=== PATIENT | male | born 1980 | race Caucasian/White ===

== ENCOUNTER 2023-01-05 15:24 | Emergency (ER) | payer OTHER, SELFPAY ==
[2023-01-05 15:40] VITALS: BP 171/95; PULSE 92; RESP 16; TEMP 37; O2SAT 97; BMI 35.5
[2023-01-05 16:16] VITALS: BP 165/100; PULSE 94; RESP 16; O2SAT 98
--- NOTE | 2023-01-05 16:18 | XRR_ITS ---
PROCEDURE INFORMATION: Exam: XR Chest Exam date and time: 01/05/2023 4:24 PM Age: 42 years old Clinical indication: Cough and dyspnea; Additional info: Dyspnea/cough TECHNIQUE: Imaging protocol: Radiologic exam of the chest. Views: 1 view. COMPARISON: No relevant prior studies available. FINDINGS: Lungs: Unremarkable. No consolidation. Pleural spaces: Unremarkable. No pleural effusion. No pneumothorax. Heart/Mediastinum: Unremarkable. No cardiomegaly. Bones/joints: Unremarkable. XR/XR chest 1V portable [id number] IMPRESSION: No acute findings.
--- NOTE | 2023-01-05 16:31 | ED_ITS ---
HPI - Dizziness General: Chief Complaint: Dizziness Stated Complaint: sent by bc/lightheaded/dizzy/high bp Time Seen by Provider: 01/05/23 16:15 Source: patient Mode of arrival: ambulatory History of Present Illness: HPI Narrative: 42-year-old male presents emergency room with complaint of lightheadedness dizziness elevated blood pressure. He has had this going on for several weeks it was worse today. He went to be seen in the [facility] walk-in clinic and was referred here. His blood pressure been elevated over 200 at that clinic. He denies any chest pain or difficulty with vision swallowing gait. No ataxia. He had previously been thought to be hypertensive but when he made a dietary change and excluded all caffeine his hypertension resolved. MD elicited complaint: dizziness and lightheadedness Onset (ago): minute(s) Timing: sudden onset Severity: mild Description: sense of movement Exacerbating factors: nothing Relieving factors: nothing Associated symptoms: Denies abnormal vaginal bleeding, change in hearing, chest pain, chills, cough, diaphoresis, ear discharge, ear pressure, fevers/chills, headache(s), malaise, nausea, nasal congestion, palpitations, rash, short of breath, syncope, tinnitus, vomiting or weakness Associated neuro symptoms: Deny confusion, difficulty speaking, dysphagia, diplopia, extremity weakness, facial numbness, facial weakness, gait changes, numbness in extremities or visual changes Review of Systems Const: Denies: chills, fatigue, malaise or diaphoresis ENMT: Denies: ear discharge, change in hearing, tinnitus or nasal congestion Card: Denies: chest pain, palpitations, irregular heart rhythm, edema, swelling of feet/ankles or syncope Resp: Denies: dyspnea, productive cough or non-productive cough GI: Denies: abdominal pain, nausea, vomiting or dysphagia : Denies: flank pain, dysuria, urinary frequency or urinary urgency Skin/Breast: Denies: rash or pruritus Neuro: Denies: headache(s), numbness in extremities or confusion Physical Exam Const: GENERAL APPEARANCE: cooperative and comfortable ORIENTATION/CONSCIOUSNESS: Yes awake, Yes oriented to person, Yes oriented to place and Yes oriented to time HENMT: COMMON NORMALS: normocephalic, atraumatic and hearing grossly normal bilaterally HEAD & SCALP: normocephalic and atraumatic Resp: COMMON NORMALS: normal respiratory effort, No retractions, No use of accessory muscles and clear to auscultation bilaterally AUSCULTATION: clear to auscultation bilaterally Cardio: COMMON NORMALS: regular rate, regular rhythm and No murmurs present (Cardio) RATE: regular rate RHYTHM: regular rhythm GI: COMMON NORMALS: Soft to palpation and No hepatosplenomegaly present AUSCULTATION: Yes normoactive bowel sounds PALPATION: Yes Soft to palpation, No Tenderness to palpation present (GI), No Guarding due to palpation present (GI) and Yes No hepatosplenomegaly present : COMMON NORMALS: Yes no CVA tenderness BLADDER/KIDNEY EXAM: Yes no CVA tenderness Back/Pelvis: COMMON NORMALS: no CVA tenderness Extremity: COMMON NORMALS: normal to inspection, capillary refill normal, no clubbing, cyanosis or edema, no calf tenderness and no pedal edema Neuro: SENSORIUM/ORIENTATION: Yes oriented to person, Yes oriented to place and Yes oriented to time Skin: COMMON NORMALS: no rashes or lesions noted GENERAL SKIN EXAM: no surekha hes or lesions noted Course Vital Signs: Vital signs: Vital Signs Temperature 98.6 F 01/05/23 15:40 Pulse Rate 72 01/05/23 18:07 Respiratory Rate 18 01/05/23 18:07 Blood Pressure 144/99 01/05/23 18:07 Pulse Oximetry 94 01/05/23 18:07 Oxygen Delivery Me thod Room Air 01/05/23 17:30 MDM - Dizziness Medical Decision Making Blood pressure improved with interventions in the emergency room patient is feeling better will discharge home on amlodipine 5 mg daily. Recommend the patient follow-up with primary care within the next 4 to 5 days to recheck blood pressure and adjust as necessary if there is any worsening or change symptoms return to the emergency room. Medical Records I reviewed the patient's medical records. Lab Data I reviewed the patient's lab results. 01/05/23 16:37 01/05/23 16:37 Radiology Impressions Chest X-Ray 01/05/23 16:18 IMPRESSION: No acute findings. Laboratory Results WBC 10.5 10^3/uL (4.0-10.0) H 01/05/23 16:37 RBC 5.49 10^6/uL (4.1-5.3) H 01/05/23 16:37 Hgb 14.9 g/dL (11.7-16.6) 01/05/23 16:37 Hct 44.1 % (42.0-52.0) 01/05/23 16:37 MCV 80.3 fl (80-94) 01/05/23 16:37 MCH 27.1 pg (28.0-34.0) L 01/05/23 16:37 MCHC 33.8 g/dL (30.0-36.0) 01/05/23 16:37 RDW 13.2 % (12.1-15.1) 01/05/23 16:37 Plt Count 343 10^3/cmm (130-400) 01/05/23 16:37 MPV 8.5 fL (7.4-10.4) 01/05/23 16:37 Neut % (Auto) 72.8 % 01/05/23 16:37 Lymph % (Auto) 18.8 % 01/05/23 16:37 [place] % (Auto) 7.1 % 01/05/23 16:37 Eos % (Auto) 0.4 % 01/05/23 16:37 Baso % (Auto) 0.4 % 01/05/23 16:37 Neut # (Auto) 7.65 10^3/uL (1.8-7.7) 01/05/23 16:37 Lymph # (Auto) 2.0 10^3/uL (0.8-4.8) 01/05/23 16:37 [place] # (Auto) 0.7 10^3/uL (0.2-0.9) 01/05/23 16:37 Eos # (Auto) 0.0 10^3/uL (0.0-0.8) 01/05/23 16:37 Baso # (Auto) 0.0 10^3/uL (0.0-0.1) 01/05/23 16:37 Nucleated RBC % (auto) 0 % 01/05/23 16:37 Nucleated RBCs # 0.0 /100WBC 01/05/23 16:37 Sodium 139 mmol/L (136-145) 01/05/23 16:37 Potassium 4.2 mmol/L (3.5-5.1) 01/05/23 16:37 Chloride 102 mmol/L (98-107) 01/05/23 16:37 Carbon Dioxide 25 mmol/L (22-29) 01/05/23 16:37 Anion Gap 16.2 (5-19) 01/05/23 16:37 BUN 14 mg/dL (6-20) 01/05/23 16:37 Creatinine 1.1 mg/dL (0.7-1.2) 01/05/23 16:37 GFR Calculation 73.4 mL/min (90-130) L 01/05/23 16:37 Glucose 100 mg/dL (65-115) 01/05/23 16:37 Calculated Osmolality 289 mOsm/kg (285-295) 01/05/23 16:37 Calcium 9.3 mg/dL (8.5-10.5) 01/05/23 16:37 Total Bilirubin 0.4 mg/dL (0.15-1.2) 01/05/23 16:37 AST 24 U/L (0-40) 01/05/23 16:37 ALT 37 U/L (0-41) 01/05/23 16:37 Alkaline Phosphatase 70 U/L (40-130) 01/05/23 16:37 Total Protein 8.1 g/dL (6.6-8.7) 01/05/23 16:37 Albumin 5.0 g/dL (3.5-5.2) 01/05/23 16:37 Globulin 3.1 g/dL (1.3-4.6) 01/05/23 16:37 Urine Color Colorless (Yellow) 01/05/23 17:25 Urine Appearance Clear (CLEAR) 01/05/23 17:25 Urine pH 8 (5-7) H 01/05/23 17:25 Ur Specific [place] 1.015 (1.005-1.030) 01/05/23 17:25 Urine Protein Neg (Negative) 01/05/23 17:25 Urine Glucose (UA) Norm (Normal) 01/05/23 17:25 Urine Ketones Negative (Negative) 01/05/23 17:25 Urine Blood Neg (Negative) 01/05/23 17:25 Urine Nitrate Negative (Negative) 01/05/23 17:25 Urine Bilirubin Neg (Negative) 01/05/23 17:25 Prot Sulfosalicylic Acd Negative (Negative) 01/05/23 17:25 Urine Urobilinogen Norm mg/dL (Negative) 01/05/23 17:25 Ur Leukocyte Esterase Negative (Negative) 01/05/23 17:25 Discharge Plan Discharge Patient Disposition: Home Clinical Impression: Benign essential HTN Condition: Stable Prescriptions: New amlodipine 5 mg tablet 5 mg PO DAILY Qty: 30 0RF No Action doxycycline hyclate 100 mg capsule 100 mg PO BID 7 Days Qty: 14 0RF mupirocin 2 % ointment 1 applic topical BID 14 Days Qty: 22 2RF temazepam 15 mg capsule 15 mg PO .qhs Qty: 30 5RF Discharge Orders: Discharge ED (Routine); Ordered 01/05/23 Ordered By: Sincere Barroso Discharge Diet: Usual diet Discharge Activity: Increase activity as tolerated Patient Instructions: Opioid Safety, Pain Management Activity Restrictions/Additional Instructions: Recheck your blood pressure with your primary care doctor in 4-5 days. Coding Level of Care Code ED Water Resource Manager for Tylor Heath
--- NOTE | 2023-01-05 16:32 | ECG_ITS ---
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 Measurements Intervals [place] Rate: 86 P: 58 TN: 153 QRS: 69 QRSD: 108 T: 34 QT: 357 QTc: 429 Interpretive Statements SINUS RHYTHM No previous ECG available for comparison Electronically Signed On 01-05-2023 19:25:51 CDT by Marcy Jules M.D. [id number]
[2023-01-05 16:47] LABS: Basophils % 0.4 %; Eosinophils % 0.4 %; Hematocrit 44.1 % (42.0-52.0); Hemoglobin 14.9 g/dL (11.7-16.6); Lymphocytes % 18.8 %; Mean Corpuscular HGB Conc 33.8 g/dL (30.0-36.0); Mean Corpuscular Hemoglobin 27.1 pg (28.0-34.0); Mean Corpuscular Volume 80.3 fl (80-94); Mean Platelet Volume 8.5 fL (7.4-10.4); Monocytes # 0.7 10^3/uL (0.2-0.9); Monocytes % 7.1 %; Neutrophils # 7.65 10^3/uL (1.8-7.7); Neutrophils % 72.8 %; Nucleated Red Blood Cells % 0 %; Platelet Count 343 10^3/cmm (130-400); Red Blood Count 5.49 10^6/uL (4.1-5.3); Red Cell Distribution Width 13.2 % (12.1-15.1); White Blood Count 10.5 10^3/uL (4.0-10.0)
[2023-01-05] MEDS: labetalol 5 mg/mL SDV 20mL 10 MG IVP (17:02)
[2023-01-05] MEDS: amlodipine 10 mg Tablet PO (17:02)
[2023-01-05 17:05] LABS: Alanine Aminotransferase 37 U/L (0-41); Alkaline Phosphatase 70 U/L (40-130); Anion Gap 16.2 (5-19); Aspartate Amino Transferase 24 U/L (0-40); Blood Urea Nitrogen 14 mg/dL (6-20); Calcium 9.3 mg/dL (8.5-10.5); Carbon Dioxide 25 mmol/L (22-29); Chloride 102 mmol/L (98-107); Globulin 3.1 g/dL (1.3-4.6); Glomerular Filtration Rate 73.4 mL/min (90-130); Glucose 100 mg/dL (65-115); Osmolality Calculated 289 mOsm/kg (285-295); Potassium 4.2 mmol/L (3.5-5.1); Sodium 139 mmol/L (136-145); Total Bilirubin 0.4 mg/dL (0.15-1.2); Total Protein 8.1 g/dL (6.6-8.7)
[2023-01-05 17:30] VITALS: BP 148/90; PULSE 88; RESP 18; O2SAT 100
[2023-01-05 17:31] LABS: Add Urine Microscopic? NO; Charge for UA Resulting for Rev
[2023-01-05 17:39] LABS: Urine Appearance Clear (CLEAR); Urine Color Colorless (Yellow)
[2023-01-05 17:40] LABS: Bilirubin Urine Neg (Negative); Blood Urine Neg (Negative); Glucose Urine UA Norm (Normal); Ketones Urine Negative (Negative); Leukocyte Esterase Urine Negative (Negative); Nitrate Urine Negative (Negative); Protein Urine Neg (Negative); Specific Gravity, Urine 1.015 (1.005-1.030); Urobilinogen Urine Norm (Negative); pH Urine 8 (5-7)
[2023-01-05 17:41] LABS: Sulfosalicylic Acid Urine Negative (Negative)
[2023-01-05 18:07] VITALS: BP 144/99; PULSE 72; RESP 18; O2SAT 94
== END 2023-01-05 18:10 | disposition home or self-care (01) ==
PROVIDERS: Emergency Provider Family Medicine
DX: I10 Essential (primary) hypertension (principal)
CPT/HCPCS: 71045; 80053; 81003; 85025; 93005; 96374; 99285; J3490

== ENCOUNTER 2023-02-01 12:25 | Emergency (ER) | payer OTHER, SELFPAY ==
[2023-02-01 12:28] VITALS: BP 153/87; PULSE 97; RESP 16; TEMP 36.7; O2SAT 97; BMI 35.5
--- NOTE | 2023-02-01 15:06 | XRR_ITS ---
PROCEDURE INFORMATION: Exam: XR Chest Exam date and time: 02/01/2023 3:23 PM Age: 42 years old Clinical indication: Pain; Angina pectoris; Additional info: Chest pain TECHNIQUE: Imaging protocol: Radiologic exam of the chest. Views: 1 view. COMPARISON: CR XR chest 1V portable [id number] 01/05/2023 4:24 PM FINDINGS: Lungs: Unremarkable. No consolidation. Pleural spaces: Unremarkable. No pleural effusion. No pneumothorax. Heart/Mediastinum: Unremarkable. No cardiomegaly. Bones/joints: Unremarkable. XR/XR chest 1V portable [id number] IMPRESSION: No acute findings.
--- NOTE | 2023-02-01 15:06 | W.ED.CHESTPA ---
HPI - Chest Pain General: Chief Complaint: Chest Pain Stated Complaint: chest pain, sob Time Seen by Provider: 02/01/23 15:06 History of Present Illness: Patient presents to the ER with complaints of chest pain and shortness of breath, patient has had multiple episodes of left-sided chest pain and pressure since last night patient says he gets short of breath when these happen. Patient does have a history of recently starting new blood pressure medicine approximately a month ago his amlodipine 5 mg daily. Patient has seen his PCP during this time. Patient is not currently having chest pain nausea vomiting shortness of breath at this time. Patient says never had the symptoms before Review of Systems General: Reports: 10 or more systems reviewed and unremarkable except in HPI and below Physical Exam Const: COMMON NORMALS: no acute distress, average body habitus, patient oriented x3, no limitations, healthy appearing, alert and well nourished HENMT: COMMON NORMALS: normocephalic, atraumatic, hearing grossly normal bilaterally, external ears normal, Normal external nose present and moist oral mucous membranes HEAD & SCALP: normocephalic and atraumatic NOSE: Normal external nose present EXTERNAL EAR: Yes external ears normal Neck/C-Spine: COMMON NORMALS: full ROM, no lymphadenopathy, supple, no meningeal signs, no JVD and Thyroid normal THYROID: Thyroid normal Chest: COMMONS NORMALS: normal inspection of the chest and normal palpation of entire chest wall Resp: COMMON NORMALS: normal respiratory effort, No retractions, No use of accessory muscles and clear to auscultation bilaterally AUSCULTATION: clear to auscultation bilaterally Cardio: COMMON NORMALS: no JVD, regular rate, regular rhythm, S1 normal heart sound present, S2 normal heart sound present, No gallops present (Cardio), No clicks present (Cardio), No murmurs present (Cardio) and No rub (Cardio) RATE: regular rate RHYTHM: regular rhythm HEART SOUNDS: S1 normal heart sound present and S2 normal heart sound present GI: COMMON NORMALS: Normal to inspection, nondistended, normoactive bowel sounds present, Soft to palpation, non-tender, No hepatosplenomegaly present and no masses PALPATION: Yes Soft to palpation and Yes No hepatosplenomegaly present : COMMON NORMALS: Yes no CVA tenderness BLADDER/KIDNEY EXAM: Yes no CVA tenderness Back/Pelvis: COMMON NORMALS: no CVA tenderness Neuro: COMMON NORMALS: patient oriented x3 SENSORIUM/ORIENTATION: Yes alert MENINGEAL SIGNS: Yes no meningeal signs Course Vital Signs: Vital signs: Vital Signs Temperature 98.0 F 02/01/23 12:28 Pulse Rate 85 02/01/23 18:34 Respiratory Rate 16 02/01/23 18:34 Blood Pressure 118/64 02/01/23 18:34 Pulse Oximetry 96 02/01/23 18:34 Oxygen Delivery Me thod Room Air 02/01/23 18:34 MDM - Chest Pain Medical Decision Making Patient presents to the ER with intermittent chest pain. Patient was evaluated by physical exam and appropriate lab work imaging and EKG Sami. Patient's troponin did not rise. Other lab work was essentially benign. Patient be discharged with diagnosis of atypical chest pain. Differential Diagnosis Unlikely acute massive pulmonary embolism, acute respiratory failure, acute myocardial infarction, cardiac arrest or sudden cardiac Medical Records I reviewed the patient's medical records. Lab Data I reviewed the patient's lab results. 02/01/23 15:29 02/01/23 15:29 Radiology Impressions Chest X-Ray 02/01/23 15:06 IMPRESSION: No acute findings. Laboratory Results WBC 8.9 10^3/uL (4.0-10.0) 02/01/23 15: RBC 5.44 10^6/uL (4.1-5.3) H 02/01/23 15:29 Hgb 15.2 g/dL (11.7-16.6) 02/01/23 15:29 Hct 44.2 % (42.0-52.0) 02/01/23 15: MCV 81.3 fl (80-94) 02/01/23 15:29 MCH 27.9 pg (28.0-34.0) L 02/01/23 15: MCHC 34.4 g/dL (30.0-36.0) 02/01/23 15: RDW 13.0 % (12.1-15.1) 02/01/23 15:29 Plt Count 312 10^3/cmm (130-400) 02/01/23 15:29 MPV 8.5 fL (7.4-10.4) 02/01/23 15: Neut % (Auto) 62.3 % 02/01/23 15:29 Lymph % (Auto) 30.3 % 02/01/23 15:29 [place] % (Auto) 6.1 % 02/01/23 15:29 Eos % (Auto) 0.7 % 02/01/23 15:29 Baso % (Auto) 0.3 % 02/01/23 15:29 Neut # (Auto) 5.54 10^3/uL (1.8-7.7) 02/01/23 15: Lymph # (Auto) 2.7 10^3/uL (0.8-4.8) 02/01/23 15: [place] # (Auto) 0.5 10^3/uL (0.2-0.9) 02/01/23 15: Eos # (Auto) 0.1 10^3/uL (0.0-0.8) 02/01/23 15: Baso # (Auto) 0.0 10^3/uL (0.0-0.1) 02/01/23 15: Nucleated RBC % (auto) 0 % 02/01/23 15: Nucleated RBCs # 0.0 /100WBC 02/01/23 15:29 Sodium 138 mmol/L (136-145) 02/01/23 15: Potassium 4.0 mmol/L (3.5-5.1) 02/01/23 15: Chloride 102 mmol/L (98-107) 02/01/23 15: Carbon Dioxide 23 mmol/L (22-29) 02/01/23 15: Anion Gap 17.0 (5-19) 02/01/23 15:29 BUN 10 mg/dL (6-20) 02/01/23 15:29 Creatinine 1.0 mg/dL (0.7-1.2) 02/01/23 15:29 GFR Calculation 81.9 mL/min (90-130) L 02/01/23 15:29 Glucose 121 mg/dL (65-115) H 02/01/23 15:29 Calculated Osmolality 286 mOsm/kg (285-295) 02/01/23 15:29 Calcium 9.4 mg/dL (8.5-10.5) 02/01/23 15:29 Total Bilirubin 0.2 mg/dL (0.15-1.2) 02/01/23 15:29 AST 18 U/L (0-40) 02/01/23 15:29 ALT 25 U/L (0-41) 02/01/23 15:29 Alkaline Phosphatase 67 U/L (40-130) 02/01/23 15:29 Troponin T Baseline 6 ng/L (0-15) 02/01/23 15:29 Troponin T 120 Minute 6.35 ng/L (0-15) 02/01/23 18:06 Delta Troponin T 0.35 ABS# (0-10) 02/01/23 18:06 Total Protein 7.4 g/dL (6.6-8.7) 02/01/23 15:29 Albumin 4.5 g/dL (3.5-5.2) 02/01/23 15:29 Globulin 2.9 g/dL (1.3-4.6) 02/01/23 15:29 EKG Data EKG 1: I personally reviewed and interpreted this EKG as follows: EKG interpretation date: 02/01/23 EKG interpretation time: 15:37 Prior EKG tracings: not available for review Interpretation: EKG showed ventricular rate 86 beats a minute, TN interval 161, QRS duration 104, QTc of 404, sinus rhythm with nonspecific T wave abnormalities. EKG 2: I personally reviewed and interpreted this EKG as follows: EKG interpretation date: 02/01/23 EKG interpretation time: 18:11 Prior EKG tracings: available for review Interpretation: EKG showed normal sinus rhythm with ventricular rate of 70 bpm, TN interval 163, QRS duration 97, QTc of 404, no ST-T wave changes Discharge Plan Discharge Patient Disposition: Home Clinical Impression: Atypical chest pain Condition: Stable Prescriptions: No Action mupirocin 2 % ointment 1 applic topical BID 14 Days Qty: 22 2RF amlodipine 5 mg tablet 5 mg PO DAILY Qty: 30 0RF aspirin 325 mg Tablet 325 mg PO BID temazepam 15 mg capsule 15 mg PO BEDTIME Discharge Orders: Discharge ED (Routine); Ordered 02/01/23 Ordered By: Jv Beebe Referrals: Maile Head FNP [Primary Care Provider] - Patient Instructions: Chest Pain - Noncardiac Activity Restrictions/Additional Instructions: Please follow-up with your family practice physician in the next 1 to 2 weeks or sooner as needed. Please return to the ER if your symptoms worsen or change. Coding Level of Care Code ED Transfer Man for Tylor Heath
--- NOTE | 2023-02-01 15:37 | ECG_ITS ---
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 Measurements Intervals [place] Rate: 86 P: 59 [place]: 161 QRS: 59 QRSD: 104 T: 33 QT: 360 QTc: 433 Interpretive Statements SINUS RHYTHM NONSPECIFIC T-WAVE ABNORMALITY Compared to ECG 01/05/2023 16:32:01 T-wave abnormality now present Electronically Signed On 02-01-2023 20:30:02 CDT by Teresa Esquivel M.D. [id number]
[2023-02-01 15:40] VITALS: BP 175/91; PULSE 95; RESP 15; O2SAT 96
[2023-02-01 15:43] LABS: Basophils % 0.3 %; Eosinophils # 0.1 10^3/uL (0.0-0.8); Eosinophils % 0.7 %; Hematocrit 44.2 % (42.0-52.0); Hemoglobin 15.2 g/dL (11.7-16.6); Lymphocytes # 2.7 10^3/uL (0.8-4.8); Lymphocytes % 30.3 %; Mean Corpuscular HGB Conc 34.4 g/dL (30.0-36.0); Mean Corpuscular Hemoglobin 27.9 pg (28.0-34.0); Mean Corpuscular Volume 81.3 fl (80-94); Mean Platelet Volume 8.5 fL (7.4-10.4); Monocytes # 0.5 10^3/uL (0.2-0.9); Monocytes % 6.1 %; Neutrophils # 5.54 10^3/uL (1.8-7.7); Neutrophils % 62.3 %; Nucleated Red Blood Cells % 0 %; Platelet Count 312 10^3/cmm (130-400); Red Blood Count 5.44 10^6/uL (4.1-5.3); White Blood Count 8.9 10^3/uL (4.0-10.0)
[2023-02-01 16:15] LABS: Alanine Aminotransferase 25 U/L (0-41); Albumin Level 4.5 g/dL (3.5-5.2); Alkaline Phosphatase 67 U/L (40-130); Aspartate Amino Transferase 18 U/L (0-40); Blood Urea Nitrogen 10 mg/dL (6-20); Calcium 9.4 mg/dL (8.5-10.5); Carbon Dioxide 23 mmol/L (22-29); Globulin 2.9 g/dL (1.3-4.6); Total Bilirubin 0.2 mg/dL (0.15-1.2); Total Protein 7.4 g/dL (6.6-8.7)
[2023-02-01 16:19] LABS: Troponin(5th) Baseline 6 ng/L (0-15)
[2023-02-01 16:32] LABS: Chloride 102 mmol/L (98-107); Sodium 138 mmol/L (136-145)
[2023-02-01 16:36] LABS: Glucose 121 mg/dL (65-115); Osmolality Calculated 286 mOsm/kg (285-295)
[2023-02-01 16:37] LABS: Glomerular Filtration Rate 81.9 mL/min (90-130)
[2023-02-01 18:00] VITALS: BP 131/72; PULSE 81; RESP 16; O2SAT 98
--- NOTE | 2023-02-01 18:11 | ECG_ITS ---
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 Measurements Intervals [place] Rate: 78 P: 43 ME: 163 QRS: 60 QRSD: 97 T: 20 QT: 370 QTc: 423 Interpretive Statements SINUS RHYTHM Compared to ECG 02/01/2023 15:37:44 T-wave abnormality no longer present Electronically Signed On 02-01-2023 20:40:41 CDT by Teresa Esquivel M.D. [id number]
[2023-02-01 18:34] VITALS: BP 118/64; PULSE 85; RESP 16; O2SAT 96
[2023-02-01 18:48] LABS: Troponin 5 2HR 6.35 ng/L (0-15)
[2023-02-01 18:52] LABS: Troponin 5 2HR Delta 0.35 ABS# (0-10)
[2023-02-01 20:10] VITALS: BP 118/64; PULSE 85; RESP 16; TEMP 36.7; O2SAT 96
== END 2023-02-01 20:11 | disposition home or self-care (01) ==
PROVIDERS: Emergency Provider Emergency Medicine; PCP Nurse Practitioner Family
DX: R07.89 Other chest pain (principal)
CPT/HCPCS: 36415; 71045; 80053; 84484; 85025; 93005; 99285

== ENCOUNTER 2023-02-03 14:21 | Emergency (ER) | payer OTHER, SELFPAY ==
[2023-02-03] VITALS (7 sets, daily range): BP systolic 136–189; BP diastolic 94–121; PULSE 92–108; RESP 12–17; TEMP 36.4; O2SAT 93–96; BMI 35.5
--- NOTE | 2023-02-03 14:59 | XR_ITS ---
WS: [id number] EXAMINATION: XR chest 1V portable [id number] REASON FOR EXAM: dyspnea/cough COMPARISON: 02/01/2023 ORDER DATE: 02/03/2023 2:59 PM TECHNIQUE: A single, portable frontal chest x-ray was obtained. X-RAY FINDINGS: The lungs are clear. Pleural spaces are clear. No pleural effusions or pneumothorax. Cardiomediastinal silhouette is normal. No evidence for pulmonary edema. Soft tissue and osseous structures are unremarkable. No tubes or lines are present. XR/XR chest 1V portable [id number] IMPRESSION: Unremarkable frontal portable chest x-ray.
--- NOTE | 2023-02-03 14:59 | CT_ITS ---
WS: [id number] CT HEAD TECHNIQUE: Noncontrast CT of the head obtained from the skullbase to the vertex. CLINICAL INFORMATION: elevated BP, nause and vomittingm dizziness COMPARISON: None. DLP: 1091.[address] scans at [facility] use at least one of these dose optimization techniques: automated e xposure control; mA and/or kV adjustment per patient size (includes targeted exams where dose is matc hed to clinical indication); or iterative reconstruction. FINDINGS: No evidence of intracranial hemorrhage or mass effect. Ventricular system and basal cisterns are albarado nt. No extra-axial fluid collections. No evidence of mass or mass effect. Normal warren-white different iation. Paranasal sinuses and mastoid air cells are well aerated. .Normal visualized soft tissues. CT/CT head wo con* [id number] IMPRESSION: 1. No evidence of intracranial hemorrhage or mass effect. 2. No acute intracranial findings.
--- NOTE | 2023-02-03 15:07 | ED_ITS ---
HPI - Dizziness General: Chief Complaint: Dizziness Stated Complaint: Dizzy, Weakness, chest pain Time Seen by Provider: 02/03/23 14:32 Source: patient Mode of arrival: ambulatory History of Present Illness: HPI Narrative: 43-year-old male presents emergency room with complaint of dizziness that began suddenly about 30 minutes ago he got lightheaded some blurry vision he was sitting at home when this happened. He could barely stand up and get very shaky had some nausea no vomiting has had a couple episodes like this before in the past about 3-4 times a month. His blood pressure been noted to be markedly elevated recently. He is also having some chest pain which she rates 4 out of 10. He states he had an irregular EKG when he checked in his primary care doctor's office 2 weeks ago he is not seeing cardiology but that has been scheduled. He is able to reproduce his symptoms when he sits up but not when he moves his head. No recent injury or neck trauma. He was relatively recently started on amlodipine when he arrives here his blood pressure still markedly elevated. MD elicited complaint: dizziness and lightheadedness Onset (ago): week(s) (2) Timing: sudden onset Severity: moderate Description: room spinning and lightheadedness Context: change in body position Exacerbating factors: movement/ambulation and change in body position Relieving factors: remaining still Associated symptoms: Reports chest pain; Denies change in hearing, chills, cough, diaphoresis, ear discharge, ear pressure, fevers/chills, headache(s), malaise, nausea, nasal congestion, palpitations, rash, short of breath, syncope, tinnitus, vomiting, weakness or other Associated neuro symptoms: Deny confusion, difficulty speaking, dysphagia, diplopia, extremity weakness, facial numbness, facial weakness, gait changes, numbness in extremities or visual changes Review of Systems Const: Denies: chills, malaise or diaphoresis ENMT: Denies: ear discharge, change in hearing, tinnitus or nasal congestion Card: Reports: chest pain; Denies: palpitations or syncope GI: Denies: nausea, vomiting or dysphagia Neuro: Denies: headache(s), numbness in extremities or confusion Physical Exam Const: GENERAL APPEARANCE: cooperative and comfortable ORIENTATION/CONSCIOUSNESS: Yes awake, Yes oriented to person, Yes oriented to place and Yes oriented to time HENMT: COMMON NORMALS: normocephalic, atraumatic and hearing grossly normal bilaterally HEAD & SCALP: normocephalic and atraumatic Resp: COMMON NORMALS: normal respiratory effort, No retractions, No use of accessory muscles and clear to auscultation bilaterally AUSCULTATION: clear to auscultation bilaterally Cardio: COMMON NORMALS: regular rate, regular rhythm and No murmurs present (Cardio) RATE: regular rate RHYTHM: regular rhythm GI: COMMON NORMALS: Soft to palpation and No hepatosplenomegaly present AUSCULTATION: Yes normoactive bowel sounds PALPATION: Yes Soft to palpation, No Tenderness to palpation present (GI), No Guarding due to palpation present (GI) and Yes No hepatosplenomegaly present Extremity: COMMON NORMALS: normal to inspection, capillary refill normal, no clubbing, cyanosis or edema, no calf tenderness and no pedal edema Neuro: SENSORIUM/ORIENTATION: Yes oriented to person, Yes oriented to place and Yes oriented to time Skin: COMMON NORMALS: no rashes or lesions noted GENERAL SKIN EXAM: no rashes or lesions noted Course Vital Signs: Vital signs: Vital Signs Temperature 97.5 F L 02/03/23 14:27 Pulse Rate 105 H 02/03/23 17:34 Respiratory Rate 12 02/03/23 17:34 Blood Pressure 136/99 02/03/23 17:34 Pulse Oximetry 95 02/03/23 17:34 Oxygen Delivery Me thod Room Air 02/03/23 14:27 MDM - Dizziness Medical Decision Making Patient seen and earlier this week had cardiac work-up that was negative for has an unchanged EKG and normal troponin. Most of his symptoms seem to be related to his blood pressure. Improved with blood pressure being low he has been very weak and tired lately his blood pressure is excessively high. He has a slight bump in his creatinine. He did respond well to the medications given. Add Toprol XL 25 daily and lisinopril 20 daily continue the amlodipine and recheck with his primary care doctor next week to review blood pressure. He has cardiology referral made by his primary care doctor. Medical Records I reviewed the patient's medical records. Lab Data I reviewed the patient's lab results. 02/03/23 14:57 02/03/23 14:57 Radiology Impressions Chest X-Ray 02/03/23 14:59 IMPRESSION: Unremarkable frontal portable chest x-ray. Head CT 02/03/23 14:59 IMPRESSION: 1. No evidence of intracranial hemorrhage or mass effect. 2. No acute intracranial findings. Head/Neck CTA 02/03/23 15:26 IMPRESSION: No large vessel stenosis or occlusion. IMPRESSION: No stenosis or occlusion. REFERENCES: NASCET CRITERIA. The degree of stenosis in the cervical segment of the internal carotid artery is based on NASCET criteria. Normal is no stenosis. Mild is less than 50% stenosis. Moderate is 50-69% stenosis. Severe is 70% to 99% stenosis. Total occlusion is no detectable patent lumen. Laboratory Results WBC 11.8 10^3/uL (4.0-10.0) H 02/03/23 14:57 RBC 5.54 10^6/uL (4.1-5.3) H 02/03/23 14:57 Hgb 15.4 g/dL (11.7-16.6) 02/03/23 14:57 Hct 44.6 % (42.0-52.0) 02/03/23 14:57 MCV 80.5 fl (80-94) 02/03/23 14:57 MCH 27.8 pg (28.0-34.0) L 02/03/23 14:57 MCHC 34.5 g/dL (30.0-36.0) 02/03/23 14:57 RDW 12.9 % (12.1-15.1) 02/03/23 14:57 Plt Count 355 10^3/cmm (130-400) 02/03/23 14:57 MPV 8.8 fL (7.4-10.4) 02/03/23 14:57 Neut % (Auto) 62.1 % 02/03/23 14:57 Lymph % (Auto) 31.0 % 02/03/23 14:57 [place] % (Auto) 5.5 % 02/03/23 14:57 Eos % (Auto) 0.7 % 02/03/23 14:57 Baso % (Auto) 0.3 % 02/03/23 14:57 Neut # (Auto) 7.30 10^3/uL (1.8-7.7) 02/03/23 14:57 Lymph # (Auto) 3.6 10^3/uL (0.8-4.8) 02/03/23 14:57 [place] # (Auto) 0.7 10^3/uL (0.2-0.9) 02/03/23 14:57 Eos # (Auto) 0.1 10^3/uL (0.0-0.8) 02/03/23 14:57 Baso # (Auto) 0.0 10^3/uL (0.0-0.1) 02/03/23 14:57 Nucleated RBC % (auto) 0 % 02/03/23 14:57 Nucleated RBCs # 0.0 /100WBC 02/03/23 14:57 Sodium 140 mmol/L (136-145) 02/03/23 14:57 Potassium 4.3 mmol/L (3.5-5.1) 02/03/23 14:57 Chloride 102 mmol/L (98-107) 02/03/23 14:57 Carbon Dioxide 23 mmol/L (22-29) 02/03/23 14:57 Anion Gap 19.3 (5-19) H 02/03/23 14:57 BUN 13 mg/dL (6-20) 02/03/23 14:57 Creatinine 1.4 mg/dL (0.7-1.2) H 02/03/23 14:57 GFR Calculation 55.6 mL/min (90-130) L 02/03/23 14:57 Glucose 109 mg/dL (65-115) 02/03/23 14:57 Calculated Osmolality 291 mOsm/kg (285-295) 02/03/23 14:57 Calcium 9.7 mg/dL (8.5-10.5) 02/03/23 14:57 Total Bilirubin 0.5 mg/dL (0.15-1.2) 02/03/23 14:57 AST 23 U/L (0-40) 02/03/23 14:57 ALT 29 U/L (0-41) 02/03/23 14:57 Alkaline Phosphatase 72 U/L (40-130) 02/03/23 14:57 Troponin T Gen 5 ng/L 7 ng/L (0-15) 02/03/23 14:51 Total Protein 7.4 g/dL (6.6-8.7) 02/03/23 14:57 Albumin 4.8 g/dL (3.5-5.2) 02/03/23 14:57 Globulin 2.6 g/dL (1.3-4.6) 02/03/23 14:57 Urine Color Yellow (Yellow) 02/03/23 15:49 Urine Appearance Clear (CLEAR) 02/03/23 15:49 Urine pH 8 (5-7) H 02/03/23 15:49 Ur Specific [place] 1.015 (1.005-1.030) 02/03/23 15:49 Urine Protein Neg (Negative) 02/03/23 15:49 Urine Glucose (UA) Norm (Normal) 02/03/23 15:49 Urine Ketones Negative (Negative) 02/03/23 15:49 Urine Blood Neg (Negative) 02/03/23 15:49 Urine Nitrate Negative (Negative) 02/03/23 15:49 Urine Bilirubin Neg (Negative) 02/03/23 15:49 Urine Urobilinogen Norm mg/dL (Negative) 02/03/23 15:49 Ur Leukocyte Esterase Negative (Negative) 02/03/23 15:49 Discharge Plan Discharge Patient Disposition: Home Clinical Impression: Atypical chest pain Condition: Stable Prescriptions: New Toprol XL 25 mg tablet extended release 24 hr 25 mg PO DAILY Qty: 30 0RF lisinopril 20 mg tablet 20 mg PO DAILY Qty: 30 0RF No Action amlodipine 5 mg tablet 5 mg PO DAILY Qty: 30 0RF aspirin 325 mg Tablet 325 mg PO DAILY temazepam 15 mg capsule 15 mg PO BEDTIME Discharge Orders: Discharge ED (Routine); Ordered 02/03/23 Ordered By: Sincere Barroso Referrals: Maile Head FNP [Primary Care Provider] - Patient Instructions: Opioid Safety, Pain Management Activity Restrictions/Additional Instructions: You are seen today for elevated blood pressure. It did improve with medications given. Neurologic exam CT of the head and CTA of your head and neck were negative. Recommend you continue the amlodipine 5 mg daily and add Toprol-XL once daily as well as lisinopril 20 mg daily. You should have your kidney function and blood pressure rechecked with your primary care doctor early next week. Coding Level of Care Code ED Soaking Room Operator for Tylor Heath
[2023-02-03 15:18] LABS: Basophils % 0.3 %; Eosinophils # 0.1 10^3/uL (0.0-0.8); Eosinophils % 0.7 %; Hematocrit 44.6 % (42.0-52.0); Hemoglobin 15.4 g/dL (11.7-16.6); Lymphocytes # 3.6 10^3/uL (0.8-4.8); Mean Corpuscular HGB Conc 34.5 g/dL (30.0-36.0); Mean Corpuscular Hemoglobin 27.8 pg (28.0-34.0); Mean Corpuscular Volume 80.5 fl (80-94); Mean Platelet Volume 8.8 fL (7.4-10.4); Monocytes # 0.7 10^3/uL (0.2-0.9); Monocytes % 5.5 %; Neutrophils % 62.1 %; Nucleated Red Blood Cells % 0 %; Platelet Count 355 10^3/cmm (130-400); Red Blood Count 5.54 10^6/uL (4.1-5.3); Red Cell Distribution Width 12.9 % (12.1-15.1); White Blood Count 11.8 10^3/uL (4.0-10.0)
[2023-02-03] MEDS: amlodipine 5 mg Tablet PO (15:18)
[2023-02-03 15:26] LABS: Alanine Aminotransferase 29 U/L (0-41); Albumin Level 4.8 g/dL (3.5-5.2); Alkaline Phosphatase 72 U/L (40-130); Blood Urea Nitrogen 13 mg/dL (6-20); Calcium 9.7 mg/dL (8.5-10.5); Carbon Dioxide 23 mmol/L (22-29); Chloride 102 mmol/L (98-107); Globulin 2.6 g/dL (1.3-4.6); Glomerular Filtration Rate 55.6 mL/min (90-130); Glucose 109 mg/dL (65-115); Osmolality Calculated 291 mOsm/kg (285-295); Sodium 140 mmol/L (136-145); Total Bilirubin 0.5 mg/dL (0.15-1.2); Total Protein 7.4 g/dL (6.6-8.7)
--- NOTE | 2023-02-03 15:26 | CTR_ITS ---
PROCEDURE INFORMATION: Exam: CTA Head With Contrast, Arteriography Exam date and time: 02/03/2023 3:34 PM Age: 42 years old Clinical indication: Dizziness and giddiness; Additional info: Sudden onset dizziness with nausea vision changes TECHNIQUE: Imaging protocol: Computed tomographic angiography of the head with contrast. Exam focused on the arteries. 3D rendering (Not supervised by radiologist): MIP and/or 3D reconstructed images were created by the technologist. Radiation optimization: All CT scans at this facility use at least one of these dose optimization techniques: automated exposure control; mA and/or kV adjustment per patient size (includes targeted exams where dose is matched to clinical indication); or iterative reconstruction. Contrast material: OMNI 350; Contrast volume: 100 ml; Contrast route: INTRAVENOUS (IV); REPORTING DATA: Count of CT and Cardiac NM exams in prior 12 months: This patient has received 0 known CTs and 0 known cardiac nuclear medicine studies in the 12 months prior to the current study. COMPARISON: CT head wo con* [id number] 02/03/2023 3:08 PM RADIATION DOSE METRICS: Total DLP (mGy-cm): 513.78 FINDINGS: ANTERIOR CIRCULATION: Right internal carotid artery: Intracranial segment is patent with no significant stenosis. No aneurysm. Right middle cerebral artery: No occlusion or significant stenosis. No aneurysm. Right anterior cerebral artery: No occlusion or significant stenosis. No aneurysm. Left internal carotid artery: Intracranial segment is patent with no significant stenosis. No aneurysm. Left middle cerebral artery: No occlusion or significant stenosis. No aneurysm. Left anterior cerebral artery: No occlusion or significant stenosis. No aneurysm. POSTERIOR CIRCULATION: Right vertebral artery: No occlusion or significant stenosis. No aneurysm. Left vertebral artery: No occlusion or significant stenosis. No aneurysm. Basilar artery: No occlusion or significant stenosis. No aneurysm. Right posterior cerebral artery: No occlusion or significant stenosis. No aneurysm. Left posterior cerebral artery: No occlusion or significant stenosis. No aneurysm. Brain: No definite mass, mass effect, or midline shift. Cerebral ventricles: No ventriculomegaly. Bones/joints: Unremarkable. No acute fracture. Soft tissues: Unremarkable. PROCEDURE INFORMATION: Exam: CTA Neck With Contrast Exam date and time: 02/03/2023 3:34 PM Age: 42 years old Clinical indication: Dizziness and giddiness; Additional info: Sudden onset dizziness with nausea vision changes TECHNIQUE: Imaging protocol: Computed tomographic angiography of the neck with contrast. 3D rendering (Not supervised by radiologist): MIP and/or 3D reconstructed images were created by the technologist. Radiation optimization: All CT scans at this facility use at least one of these dose optimization techniques: automated exposure control; mA and/or kV adjustment per patient size (includes targeted exams where dose is matched to clinical indication); or iterative reconstruction. Contrast material: OMNI 350; Contrast volume: 100 ml; Contrast route: INTRAVENOUS (IV); REPORTING DATA: Count of CT and Cardiac NM exams in prior 12 months: This patient has received 0 known CTs and 0 known cardiac nuclear medicine studies in the 12 months prior to the current study. COMPARISON: CT head wo con* [id number] 02/03/2023 3:08 PM RADIATION DOSE METRICS: Total DLP (mGy-cm): 513.78 FINDINGS: Right common carotid artery: No stenosis. No dissection or occlusion. Right internal carotid artery: No stenosis of the extracranial segment. No dissection or occlusion. Right external carotid artery: No occlusion or stenosis of the origin. Left common carotid artery: No stenosis. No dissection or occlusion. Left internal carotid artery: No stenosis of the extracranial segment. No dissection or occlusion. Left external carotid artery: No occlusion or stenosis of the origin. Right vertebral artery: No stenosis. No dissection or occlusion. Left vertebral artery: No stenosis. No dissection or occlusion. Soft tissues: Normal. No significant soft tissue swelling. Bones/joints: No acute fracture. CT/CT angio headneck* [id number] IMPRESSION: No large vessel stenosis or occlusion. IMPRESSION: No stenosis or occlusion. REFERENCES: NASCET CRITERIA. The degree of stenosis in the cervical segment of the internal carotid artery is based on NASCET criteria. Normal is no stenosis. Mild is less than 50% stenosis. Moderate is 50-69% stenosis. Severe is 70% to 99% stenosis. Total occlusion is no detectable patent lumen.
[2023-02-03 15:27] LABS: Anion Gap 19.3 (5-19); Aspartate Amino Transferase 23 U/L (0-40); Potassium 4.3 mmol/L (3.5-5.1)
[2023-02-03] MEDS: labetalol 5 mg/mL SDV 20mL 10 MG IVP (15:56)
[2023-02-03 15:57] LABS: Add Urine Microscopic? NO; Charge for UA Resulting for Rev
[2023-02-03 16:01] LABS: Bilirubin Urine Neg (Negative); Blood Urine Neg (Negative); Glucose Urine UA Norm (Normal); Ketones Urine Negative (Negative); Leukocyte Esterase Urine Negative (Negative); Nitrate Urine Negative (Negative); Protein Urine Neg (Negative); Specific Gravity, Urine 1.015 (1.005-1.030); Urine Appearance Clear (CLEAR); Urine Color Yellow (Yellow); Urobilinogen Urine Norm (Negative); pH Urine 8 (5-7)
[2023-02-03] MEDS: metoprolol tartrate 25 mg Tablet PO (17:33)
--- NOTE | 2023-02-03 17:49 | ECG_ITS ---
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 Measurements Intervals [place] Rate: 95 P: 53 MI: 158 QRS: 68 QRSD: 104 T: 22 QT: 353 QTc: 444 Interpretive Statements SINUS RHYTHM POSSIBLE ANTERIOR MYOCARDIAL INFARCTION , OF INDETERMINATE AGE [30 ms Q WAVE IN V3/V4, OR R < 0.2 mV IN V4] Compared to ECG 02/01/2023 18:11:27 Myocardial infarct finding now present Electronically Signed On 02-03-2023 18:40:12 CDT by Teresa Esquivel M.D. [email or web address]
[2023-02-03 18:05] LABS: Troponin T (5th) Once 7 ng/L (0-15)
== END 2023-02-03 18:23 | disposition home or self-care (01) ==
PROVIDERS: Emergency Provider Family Medicine; PCP Nurse Practitioner Family
DX: R07.89 Other chest pain (principal); Z79.899 Other long term (current) drug therapy; Z79.82 Long term (current) use of aspirin
CPT/HCPCS: 70450; 70496; 70498; 71045; 80053; 81003; 84484; 85025; 93005; 96374; 99285; J3490; Q9967

== ENCOUNTER 2023-02-21 07:54 | Outpatient (CLI) | payer OTHER, SELFPAY ==
--- NOTE | 2023-02-21 08:00 | ECG_ITS ---
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 Interpretive Statements NAME OF STUDY: LEXISCAN SESTAMIBI STRESS TEST INDICATION: Chest Pain PROCEDURE: At the baseline, the blood pressure was 151/84 mm Hg with a heart rate of 80 beats per minute. The electrocardiogram showed sinus rhythm with normal axis with non specific ST depression. ??? The Lexiscan was infused over a period of 20 seconds. A total of 0.4 milligrams of Lexiscan was infused. The stress phase was continued for a total of 5 minutes. Heart rate at the end of the stress phase was 116 bpm with a blood pressure of 161/85 mm Hg. The EKG at the peak infusion revealed no significant ST-T wave changes. ??? Sestamibi was injected 20 seconds after the Lexiscan infusion. ??? Blood pressure at the end of the recovery phase was 158/85 mm Hg with a heart rate of 109 beats per minute. ??? CONCLUSION: 1. No significant EKG changes with the LexiScan infusion. 2. No LexiScan induced chest pain or cardiac arrhythmia. 3. Normal blood pressure and heart rate response. 4. Sestamibi/sestamibi perfusion scan pending; see separate report. Electronically Signed On 02-22-2023 22:47:23 CDT by Marcy Jules M.D. [email or web address]
--- NOTE | 2023-02-21 08:00 | NMCV_ITS ---
NM john perf SPECT r/s* [id number] Jewel Cabello Age: 42 Gender: M : 1980 Exam Date: 02/21/2023 08:00 Ordering Phys: Maile HeadP FEED GRINDER Technologist: BEE Jackson Exam Location: [facility] Indications: CHEST PAIN STRESS TEST Please see separate stress test report in [facility] for full findings IMAGE PROTOCOL Rest/Stress 1 Lexiscan Day Radiopharmaceutical Dose (mCi) Administration Site Administered by Rest: Tc-99m 10.9 IV BEE Jackson Sestamibi Stress:Tc-99m 32.3 IV BEE Young Sestamibi Rest: 21-Feb-2023 60 Discovery 630 Stress: 21-Feb-2023 30 Discovery 630 0.4mg Lexiscan. Images obtained in supine and prone position. SPECT RESULTS Technical Quality: Excellent Raw Data Analysis: Normal Image Corrections: No attenuation or motion correction applied Summed Stress Score: 0 Summed Rest Score: 0 Summed Difference Score: 0 PERFUSION FINDINGS SPECT images demonstrate homogeneous tracer distribution throughout the myocardium. FUNCTIONAL RESULTS (calculated via Gated SPECT) Stress Image LV EF (%): 76 Stress EDV (mL):89 TID: 0.82 Stress ESV (mL):21 FUNCTIONAL FINDINGS: The left ventricle is normal in size. Transient Ischemia Dilatation of 0.82. The left ventricular ejection fraction is normal with a value of 76%. There is normal left ventricular wall thickening. Normal end diastolic and end systolic volumes. IMPRESSIONS 1. Myocardial perfusion imaging is normal. 2. Overall left ventricular systolic function is normal without regional wall motion abnormalities, LVEF=76%. 3. EKG portion of the study will be reported separately. 4. Scan indicates low risk for cardiac events. Marcy Jules MD (Electronically Signed) Final Date: 22 February 2023 22:28 S
[2023-02-21 08:09] VITALS: BMI 32.3
[2023-02-21] MEDS: regadenoson 0.4 Mg/5 ml Syringe IVP (09:35)
[2023-02-21 09:55] VITALS: BP 149/84; PULSE 112
== END 2023-02-21 07:55 | disposition home or self-care (01) ==
PROVIDERS: PCP Nurse Practitioner Family; Visit Provider Nurse Practitioner Family
DX: R07.9 Chest pain, unspecified (principal)
CPT/HCPCS: 36415; 78452; 93017; 96374; A9500; J2785

== ENCOUNTER 2023-06-07 10:30 | Emergency (ER) | payer OTHER, SELFPAY ==
[2023-06-07 10:45] VITALS: BP 142/92; PULSE 82; RESP 17; TEMP 36.6; O2SAT 99; BMI 33.9
--- NOTE | 2023-06-07 13:29 | ED_ITS ---
HPI - Arrhythmia/Palpitations 2 General: Chief Complaint: Arrhythmia/Palpitations Stated Complaint: abnomal ekg at [facility] Time Seen by Provider: 06/07/23 13:29 History of Present Illness: 43-year-old male patient comes in today for complaints of uncontrolled blood pressure and irregular EKG done at walk-in clinic. Patient reports that he has had problems with his blood pressure running high with poor to fair control. Patient at this time is on amlodipine and lisinopril. Patient appears nontoxic. Patient reports no chest pain. Patient denies any shortness of breath. Patient had a recent cardiac stress test done in February which was negative. Review of Systems 2 General: Reports: 10 or more systems reviewed and unremarkable except in HPI and below Const: Denies: malaise Card: Denies: chest pain or irregular heart rhythm Resp: Denies: dyspnea GI: Denies: abdominal pain : Denies: flank pain Musc: Denies: back pain or extremity pain Skin/Breast: Denies: rash PFSH ED 2 PFSH: Social History (Updated 06/07/23 @ 10:19 by Melisa Drummond) Smoking and tobacco/nicotine status: never used tobacco/nicotine Second hand smoke exposure: No Alcohol intake: never Substance/Drug Use: never Physical Exam 2 Const: COMMON NORMALS: alert HENMT: COMMON NORMALS: normocephalic HEAD & SCALP: normocephalic Neck/C-Spine: COMMON NORMALS: full ROM Resp: COMMON NORMALS: normal respiratory effort and clear to auscultation bilaterally AUSCULTATION: clear to auscultation bilaterally Cardio: COMMON NORMALS: regular rate and regular rhythm RATE: regular rate RHYTHM: regular rhythm GI: COMMON NORMALS: Soft to palpation and non-tender PALPATION: Yes Soft to palpation Back/Pelvis: COMMON NORMALS: thoracic and lumbar spine normal to inspection Extremity: COMMON NORMALS: no pedal edema Neuro: SENSORIUM/ORIENTATION: Yes alert Skin: COMMON NORMALS: turgor normal GENERAL SKIN EXAM: turgor normal Course 2 Vital Signs: Vital signs: Vital Signs Temperature 98 F 06/07/23 10:45 Pulse Rate 76 06/07/23 13:53 Respiratory Rate 18 06/07/23 13:53 Blood Pressure 125/77 06/07/23 13:53 Pulse Oximetry 97 06/07/23 13:53 Oxygen Delivery Me thod Room Air 06/07/23 13:53 MDM - Arrhythmia/Palpitations Medical Decision Making 43-year-old male patient comes in today for complaints of of abnormal EKG done at a walk-in clinic. Patient reports no chest pain or shortness of breath. Patient appears nontoxic. Lungs are clear to auscultation. Heart rates regular. No edema is noted in extremities. Vital signs normal except for some mild elevation in blood pressure at 142/92. Differential diagnosis includes but not limited to ACS, uncontrolled hypertension, CHF. Patient CBC was unremarkable. Troponin at the 2-hour shima was 7. Laboratory values were delayed due to poor IV access. Patient's blood pressure came down to 125/70 5 milligrams of amlodipine. Patient will increase dosing to 10 mg of amlodipine daily along with 20 mg of lisinopril. Patient reported understanding of care plan and need for follow-up or return to the ER. Lab Data 06/07/23 14:35 06/07/23 14:35 Radiology Impressions Chest X-Ray 06/07/23 13:41 IMPRESSION: No acute cardiopulmonary abnormality. Laboratory Results WBC 7.21 10^3/uL (3.29-11.43) 06/07/23 14:35 RBC 5.44 10^6/uL (3.85-5.65) 06/07/23 14:35 Hgb 15.30 g/dL (11.27-16.99) 06/07/23 14:35 Hct 45.0 % (37-53) 06/07/23 14:35 MCV 82.7 fl (82-101) 06/07/23 14:35 MCH 28.1 pg (27-33) 06/07/23 14:35 MCHC 34.0 g/dL (30-55) 06/07/23 14:35 RDW 12.5 % (12.1-15.1) 06/07/23 14:35 Plt Count 324 10^3/cmm (157-399) 06/07/23 14:35 MPV 9.1 fL (7.4-10.4) 06/07/23 14:35 Neut % (Auto) 72.2 % 06/07/23 14:35 Lymph % (Auto) 23.2 % 06/07/23 14:35 [place] % (Auto) 3.9 % 06/07/23 14:35 Eos % (Auto) 0.1 % 06/07/23 14:35 Baso % (Auto) 0.3 % 06/07/23 14:35 Neut # (Auto) 5.21 10^3/uL (1.8-7.7) 06/07/23 14:35 Lymph # (Auto) 1.7 10^3/uL (0.8-4.8) 06/07/23 14:35 [place] # (Auto) 0.3 10^3/uL (0.2-0.9) 06/07/23 14:35 Eos # (Auto) 0.0 10^3/uL (0.0-0.8) 06/07/23 14:35 Baso # (Auto) 0.0 10^3/uL (0.0-0.1) 06/07/23 14:35 Nucleated RBC % (auto) 0 % 06/07/23 14:35 Nucleated RBCs # 0.0 /100WBC 06/07/23 14:35 Sodium 139 mmol/L (136-145) 06/07/23 14:35 Potassium 4.3 mmol/L (3.5-5.1) 06/07/23 14:35 Chloride 102 mmol/L (98-107) 06/07/23 14:35 Carbon Dioxide 25 mmol/L (22-29) 06/07/23 14:35 Anion Gap 16.3 (5-19) 06/07/23 14:35 BUN 10 mg/dL (6-20) 06/07/23 14:35 Creatinine 0.9 mg/dL (0.7-1.2) 06/07/23 14:35 GFR Calculation 92.1 mL/min (90-130) 06/07/23 14:35 Glucose 116 mg/dL (65-115) H 06/07/23 14:35 Calculated Osmolality 288 mOsm/kg (285-295) 06/07/23 14:35 Calcium 9.9 mg/dL (8.5-10.5) 06/07/23 14:35 Total Bilirubin 0.4 mg/dL (0.15-1.2) 06/07/23 14:35 AST 20 U/L (0-40) 06/07/23 14:35 ALT 19 U/L (0-41) 06/07/23 14:35 Alkaline Phosphatase 69 U/L (40-130) 06/07/23 14:35 Troponin T Baseline 7 ng/L (0-15) 06/07/23 14:35 NT-Pro-B Natriuret Pep < 36 pg/mL (0-125) 06/07/23 14:35 Total Protein 8.0 g/dL (6.6-8.7) 06/07/23 14:35 Albumin 5.0 g/dL (3.5-5.2) 06/07/23 14:35 Globulin 3.0 g/dL (1.3-4.6) 06/07/23 14:35 All radiology interpretation(s) finalized by discharge Discharge Plan Discharge Patient Disposition: Home Clinical Impression: Hypertension, uncontrolled Condition: Stable Prescriptions: New amlodipine 10 mg tablet 10 mg PO DAILY Qty: 30 2RF No Action amlodipine 5 mg tablet 5 mg PO DAILY Qty: 30 0RF Toprol XL 25 mg tablet extended release 24 hr 25 mg PO DAILY Qty: 30 0RF lisinopril 20 mg tablet 20 mg PO DAILY Qty: 30 0RF aspirin 325 mg Tablet 325 mg PO DAILY temazepam 15 mg capsule 15 mg PO BEDTIME Discharge Orders: Discharge ED (Routine); Ordered 06/07/23 Ordered By: Richard Morales Referrals: Maile Head FNP [Primary Care Provider] - Discharge Diet: Usual diet Discharge Activity: Increase activity as tolerated Patient Instructions: Hypertension (ED), Mediterranean Diet (DC) Activity Restrictions/Additional Instructions: Take medications as directed for your blood pressure. You may have a increase in lightheadedness with change of position with the increase in the dose of the blood pressure medication. Drink plenty of water and fluids. Healthy diet and exercise. Follow-up with primary care in 1 week for recheck. Case management will contact you regarding follow-up appointment cardiology for further evaluation and treatment. Coding Level of Care Code ED Fire Extinguisher Charger for Tylor Heath
--- NOTE | 2023-06-07 13:41 | XRR_ITS ---
PROCEDURE INFORMATION: Exam: XR Chest Exam date and time: 06/07/2023 1:43 PM Age: 43 years old Clinical indication: Other: Arrythmia TECHNIQUE: Imaging protocol: Radiologic exam of the chest. Views: 1 view. COMPARISON: CR XR chest 1V portable [id number] 02/03/2023 3:14 PM FINDINGS: Lungs: Unremarkable. No consolidation. Pleural spaces: Unremarkable. No pleural effusion. No pneumothorax. Heart/Mediastinum: Unremarkable. No cardiomegaly. Bones/joints: Visualized osseous structures show no acute abnormality. Other findings: No significant change with prior exam. XR/XR chest 1V portable [id number] IMPRESSION: No acute cardiopulmonary abnormality.
[2023-06-07] MEDS: amlodipine 5 mg Tablet PO (13:50)
[2023-06-07 13:53] VITALS: BP 125/77; PULSE 76; RESP 18; O2SAT 97
[2023-06-07 14:50] LABS: Basophils % 0.3 %; Eosinophils % 0.1 %; Lymphocytes # 1.7 10^3/uL (0.8-4.8); Lymphocytes % 23.2 %; Mean Corpuscular Hemoglobin 28.1 pg (27-33); Mean Corpuscular Volume 82.7 fl (82-101); Mean Platelet Volume 9.1 fL (7.4-10.4); Monocytes # 0.3 10^3/uL (0.2-0.9); Monocytes % 3.9 %; Neutrophils # 5.21 10^3/uL (1.8-7.7); Neutrophils % 72.2 %; Nucleated Red Blood Cells % 0 %; Platelet Count 324 10^3/cmm (157-399); Red Blood Count 5.44 10^6/uL (3.85-5.65); Red Cell Distribution Width 12.5 % (12.1-15.1); White Blood Count 7.21 10^3/uL (3.29-11.43)
[2023-06-07 15:04] LABS: Troponin(5th) Baseline 7 ng/L (0-15)
[2023-06-07 15:14] LABS: Alanine Aminotransferase 19 U/L (0-41); Alkaline Phosphatase 69 U/L (40-130); Blood Urea Nitrogen 10 mg/dL (6-20); Calcium 9.9 mg/dL (8.5-10.5); Carbon Dioxide 25 mmol/L (22-29); Chloride 102 mmol/L (98-107); Glomerular Filtration Rate 92.1 mL/min (90-130); Glucose 116 mg/dL (65-115); NT Pro B Type Natriuretic Pept < 36 pg/mL (0-125); Osmolality Calculated 288 mOsm/kg (285-295); Sodium 139 mmol/L (136-145); Total Bilirubin 0.4 mg/dL (0.15-1.2)
[2023-06-07 15:15] LABS: Anion Gap 16.3 (5-19); Aspartate Amino Transferase 20 U/L (0-40); Potassium 4.3 mmol/L (3.5-5.1)
--- NOTE | 2023-06-08 09:01 | DCPLANNER ---
Message was sent to heart care on 06/08/23 at 0904. clinic to contact patient.
== END 2023-06-07 15:31 | disposition home or self-care (01) ==
PROVIDERS: Emergency Medicine; Emergency Provider Nurse Practitioner Family; PCP Nurse Practitioner Family
DX: I10 Essential (primary) hypertension (principal); Z79.82 Long term (current) use of aspirin
CPT/HCPCS: 36415; 71045; 80053; 83880; 84484; 85025; 99285

== ENCOUNTER 2025-05-27 15:46 | Outpatient (CLI) | payer OTHER, SELFPAY ==
--- NOTE | 2025-05-27 16:01 | MR_ITS ---
WS: [id number] MRI BRAIN WITH AND WITHOUT CONTRAST HISTORY: Dizziness COMPARISON: CT head 02/03/2023 TECHNIQUE: Multiplanar imaging performed through the brain with MultiHance 17 ml's IV. No acute infarcts are seen. Guerrero-white matter differentiation is well preserved. Single focus of increased T2 signal in the subcortical RIGHT frontal lobe white matter. No susceptibility artifacts or prior lacunar infarcts. Ventricles and extra-axial spaces are normal. Clivus and pituitary gland are normal. Visualized posterior fossa and brainstem are also normal. Postcontrast images are negative for masses or vascular malformations. Dural venous sinuses are normal. Paranasal sinuses: Well aerated with no significant disease. Mastoid air cells: Normal. Calvarium and scalp: Normal. MR/MR head wo/w con [id number] IMPRESSION: 1. No acute infarcts or ischemia. 2. No prior infarct. 3. No significant atrophy. 4. Normal posterior fossa. 5. No mass at the cerebellopontine angles. 6. No significant atrophy.
[2025-05-27] MEDS: gadobenate dimeglumine 20 mL vial 17 ML IV (16:40)
== END 2025-05-27 15:47 | disposition home or self-care (01) ==
LOC: RAD 15:48
PROVIDERS: PCP Nurse Practitioner Family; Visit Provider Internal Medicine
DX: R42 Dizziness and giddiness (principal); R93.0 Abnormal findings on diagnostic imaging of skull and head, not elsewhere classified
CPT/HCPCS: 70553; A9577